=== PATIENT | female | born 1985 | race Caucasian/White ===

== ENCOUNTER 2022-07-05 02:07 | Emergency (ER) | payer OTHER ==
[2022-07-05 02:36] VITALS: BMI 32.7
[2022-07-05 03:41] LABS: BASO % 0.7 % (0-2.0); HEMATOCRIT 37.8 % (32.4-45.2); HEMOGLOBIN 13.3 GM/dL (10.7-15.3); LYMPH % 21.1 % (8-40); MCHC 35.3 g/dl (32.0-36.0); MEAN CELL VOLUME 84.9 fl (80-96); MEAN PLT VOLUME 7.9 fl (7.5-11.1); MONO % 7.3 % (3.8-10.2); NEUT % 69.9 % (42.8-82.8); PLATELET COUNT 221 10^3/uL (134-434); RBC 4.45 M/mm3 (3.60-5.2); RDW 12.7 % (11.6-15.6); WHITE BLOOD COUNT 8.1 K/mm3 (4.0-10.0)
[2022-07-05 04:03] LABS: ALBUMIN 3.8 g/dl (3.4-5.0); CALCIUM 8.8 mg/dL (8.5-10.1)
[2022-07-05 04:05] LABS: CREATININE 0.7 mg/dL (0.55-1.3)
[2022-07-05 04:07] LABS: BILIRUBIN,TOTAL 0.5 mg/dL (0.2-1); TOT PROT 6.8 g/dl (6.4-8.2)
[2022-07-05 04:18] LABS: EPI CELLS >36 /uL (0-25.1); HYALINE CASTS 2 /uL (0-3.1); PH,URINE 5.5 (5.0-8.0); URINE APPEARANCE CLEAR; URINE BACTERIA 1075 /uL (0-1359); URINE BILIRUBIN NEGATIVE (NEGATIVE); URINE COLOR YELLOW; URINE GLUCOSE (UA) NEGATIVE (NEGATIVE); URINE KETONE TRACE (NEGATIVE); URINE LEUK ESTERASE NEGATIVE (NEGATIVE); URINE NITRITE NEGATIVE (NEGATIVE); URINE PROTEIN 1+ (NEGATIVE); URINE RBC 15 /uL (0-23.9); URINE UROBILINOGEN 0.2 mg/dL (0.2-1.0); URINE WBC 21 /uL (0-25.8)
[2022-07-05 07:45] VITALS: BP 115/73; PULSE 81; RESP 18; TEMP 99.3
== END 2022-07-05 07:54 | disposition home or self-care (01) ==
LOC: JER 02:07
DX: R56.9 Unspecified convulsions (principal)
CPT/HCPCS: 36415; 70450-TC; 70496-TC; 70498-TC; 71045-TC-FY; 80053; 81003; 83605; 84703; 85025; 99285-25